=== PATIENT | male | born 1990 | race American Indian/Alaskan Native ===

== ENCOUNTER 2017-07-08 14:09 | Emergency (ER) | payer MEDICAID ==
[2017-07-08 14:31] VITALS: TEMP 98.5
[2017-07-08] MEDS ORDERED: DiphenhydrAMINE 50 mg/ml Inj IVP STA (14:59)
[2017-07-08] MEDS ORDERED: Sodium Chloride 0.9% 1,000 ML IV STA (15:00)
--- NOTE | 2017-07-08 15:03 | ED PDOC ---
Arrival/HPI - General Chief Complaint: Headache Time Seen by Provider: 07/08/17 14:34 Historian: Patient - History of Present Illness Narrative History of Present Illness (Text): 07/08/17 15:00 Patient w/ pmh of asthma, reports one week history of gradual onset of constant throbbing headache, which started in the occipital area scalp and is now mostly in the frontal scalp and forehead, worse when he bends his head down. Patient reports improvement of his headache when taking Advil or Aleve, however headache returns now or later. He further admits waking up this morning with double vision that lasted for a few seconds. Otherwise: (-) thunderclap headache, (-) worse headache of life, (-) similar symptoms prior, (-) nausea, (- ) vomiting, (-) photophobia, (-) phonophobia, (-) URI symptoms, (-) fever, (-) trauma, (-) subjective neurologic symptoms. Of note, patient states that he saw his pmd 3 months ago and had a normal bp. PMD Mahwiyuliya Past Medical History - Provider Review Nursing Documentation Reviewed: Yes - Cardiac Hx Cardiac Disorders: No - Pulmonary Hx Respiratory Disorders: No - Neurological Hx Neurological Disorder: No - HEENT Hx HEENT Disorder: No - Renal Hx Renal Disorder: No - Endocrine/Metabolic Hx Endocrine Disorders: No - Hematological/Oncological Hx Blood Disorders: No - Integumentary Hx Dermatological Disorder: No - Musculoskeletal/Rheumatological Hx Musculoskeletal Disorders: No - Gastrointestinal Hx Gastrointestinal Disorders: No - Genitourinary/Gynecological Hx Genitourinary Disorders: No - Psychiatric Hx Psychophysiologic Disorder: Yes (PTSD) Hx Substance Use: No - Surgical History Hx Orthopedic Surgery: Yes Family/Social History - Physician Review Nursing Documentation Reviewed: Yes Family/Social History: Diabetes, Hypertension, Other (lupus ) Smoking Status: Current Some Days Smoker Hx Alcohol Use: No Hx Substance Use: No Allergies/Home Meds Allergies/Adverse Reactions: Allergies shellfish derived Allergy (Verified 07/08/17 14:30) ANAPHYLAXIS Review of Systems - Review of Systems Constitutional: Normal. absent: Fatigue, Weight Change, Fevers ENT: Normal. absent: Hearing Changes, Sore Throat, Rhinorrhea, Sinus Congestion Respiratory: Normal, Cough. absent: SOB, Sputum Cardiovascular: Normal. absent: Chest Pain, Palpitations, Edema Musculoskeletal: Normal. absent: Arthralgias, Back Pain, Neck Pain Skin: Normal. absent: Rash, Pruritis, Skin Lesions Neurological: Normal, Headache. absent: Dizziness, Focal Weakness Physical Exam - Physical Exam Narrative Physical Exam (Text): 07/08/17 15:05 GENERAL APPEARANCE: Patient is awake, alert, oriented x 3, in mild painful distress. SKIN: Warm, dry; (-) cyanosis; (-) rash. HEAD: (-) scalp swelling or tenderness, (-) temporal artery tenderness. EYES: (-) conjunctival pallor, (-) scleral icterus. ENMT: (+) frontal sinus tenderness; mucous membranes moist. NECK: (-) tenderness, (-) stiffness, (-) meningismus, (-) lymphadenopathy. CHEST AND RESPIRATORY: (-) rales, (-) rhonchi, (-) wheezes; breath sounds equal bilaterally. HEART AND CARDIOVASCULAR: (-) irregularity; (-) murmur, (-) gallop. ABDOMEN AND GI: Soft; (-) tenderness. EXTREMITIES: (-) deformity. NEURO AND PSYCH: Mental status as above. coutierier: Pupils equal and reactive; EOMI ; (-) facial asymmetry; tongue and uvula midline. Strength and DTRs symmetric. Babinski normal bilaterally. Vital Signs Temp Pulse Resp BP Pulse Ox 07/08/17 16:54 78 17 122/61 100 07/08/17 14:30 98.5 F 90 16 161/96 H 99 Medical Decision Making ED Course and Treatment: 07/08/17 15:04 27 yo M c/o one week history of gradual onset of constant throbbing headache, is now mostly in the frontal scalp and forehead, worse when he bends his head down. Plan: - Labs - IVF - Reglan IV / Benadryl IV - CT head On first reevaluation, the patient is sleeping comfortably in bed in no acute distress. Labs reviewed and are within normal limits. CT head is pending at this time. VS : P 78 BP 122/61 R 17 O2sat 100%RA. On second reevaluation, patient, alert, oriented 3. Repeat neuro exam is within normal limits. Patient reports that he still has as a mild headache. CT head results reviewed and are within normal limits. Results d/w the patient in great detail. Patient given toradol 30 mg IV. Patient advised to follow up with primary care physician in 1-2 days without fail and to have bp repeated by pmd. Patient informed of likely diagnosis of sinus headache and sinusitis, and plan to treat as such. Advised to take medication as prescribed. Return to the emergency room at any time for any new or worsening symptoms. Patient states he fully agrees with and understands discharge instructions. States that he agrees with the plan and disposition. Verbalized and repeated discharge instructions and plan. I have given the patient opportunity to ask any additional questions. - Lab Interpretations Lab Results: 07/08/17 14:50 07/08/17 14:50 Lab Results 07/08/17 14:50: Sodium 140, Potassium 4.5, Chloride 104, Carbon Dioxide 28, Anion Gap 13, BUN 10, Creatinine 1.0, Est GFR ( Amer) > 60, Est GFR (Non- Af Amer) > 60, Random Glucose 116 H, Calcium 9.7, Total Bilirubin 0.6, AST 29, ALT 55, Alkaline Phosphatase 74, Total Protein 7.9, Albumin 4.4, Globulin 3.5, Albumin/Globulin Ratio 1.3 07/08/17 14:50: WBC 8.6, RBC 5.11, Hgb 12.2 L, Hct 37.3 L, MCV 73.0 L, MCH 23.9 L, MCHC 32.7, RDW 14.5, Plt Count 253, MPV 10.1, Gran % 59.8, Lymph % (Auto) 31.7, [place] % (Auto) 6.3 H, Eos % (Auto) 1.9, Baso % (Auto) 0.3, Gran # 5.16, Lymph # 2.7, [place] # 0.5, Eos # 0.2, Baso # 0.03 I have reviewed the lab results: Yes - RAD Interpretation Narrative RAD Interpretations (Text): 07/08/17 17:00 CT HEAD : FINDINGS: HEMORRHAGE: No intracranial hemorrhage. BRAIN: No mass effect or edema. No atrophy or chronic microvascular ischemic changes. VENTRICLES: Unremarkable. No hydrocephalus. CALVARIUM: Unremarkable. PARANASAL SINUSES: Negative study for acute paranasal sinusitis. Chronic disease involving the frontal and ethmoid air cells. MASTOID AIR CELLS: Unremarkable as visualized. No inflammatory changes. OTHER FINDINGS: None. IMPRESSION: No acute intracranial abnormalities. No significant findings to account for the clinical presentation. Radiology Orders: 07/08/17 16:01 HEAD W/O CONTRAST [CT] Stat - Medication Orders Current Medication Orders: Discontinued Medications Diphenhydramine HCl (Benadryl) 25 mg IVP STAT STA Stop: 07/08/17 15:00 Last Admin: 07/08/17 15:05 Dose: 25 mg Sodium Chloride (Sodium Chloride 0.9%) 1,000 mls @ 1,000 mls/hr IV .Q1H STA Stop: 07/08/17 15:59 Last Admin: 07/08/17 15:05 Dose: 1,000 mls/hr Ketorolac Tromethamine (Toradol) 30 mg IVP STAT STA Stop: 07/08/17 17:00 Last Admin: 07/08/17 17:03 Dose: 30 mg Metoclopramide HCl (Reglan) 10 mg IVP STAT STA Stop: 07/08/17 15:00 Last Admin: 07/08/17 15:05 Dose: 10 mg - 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 Disposition/Present on Arrival - Present on Arrival Any Indicators Present on Arrival: No History of DVT/PE: No History of Uncontrolled Diabetes: No Urinary Catheter: No History of Decub. Ulcer: No History Surgical Site Infection Following: None - Disposition Have Diagnosis and Disposition been Completed?: Yes Diagnosis: Sinus headache, Sinusitis Disposition: HOME/ ROUTINE Disposition Time: 17:00 Patient Plan: Discharge Condition: STABLE Discharge Instructions (ExitCare): Sinusitis (ED), Acute Headache (ED) Print Language: SINHAL[place] Additional Instructions: Thank you for letting us take care of you today. You were treated for sinus headache / sinusitis. The emergency medical care you received today was directed at your acute symptoms. If you were prescribed any medication, please fill it and take as directed. It may take several days for your symptoms to resolve. Return to the Emergency Department if your symptoms worsen, do not improve, or if you have any other problems. Please contact your doctor in 2 days for re-evaluation and follow up. Bring any paperwork you were given at discharge with you along with any medications you are taking to your follow up visit. Our treatment cannot replace ongoing medical care by a primary care provider (PCP) outside of the emergency department. Thank you for allowing the [facility] team to be part of your care today. If you had a CT scan: A Radiologist will review the ED reading if any change in treatment is needed we will contact you. Prescriptions: Amoxicillin 500 mg PO TID #30 tablet Fluticasone Nasal [Flonase] 1 spr NS DAILY #1 spr Naproxen 500 mg PO BID #30 tab Referrals: Cory Naqvi MD [Primary Care Provider] - Follow up with primary Forms: [employer] (Dive[place]), WORK NOTE
[2017-07-08 15:25] LABS: ALB/GLOB RATIO 1.3 (1.1-1.8); ALKALINE PHOSPHATASE 74 U/L (38-126); ALT/SGPT 55 U/L (7-56); AST/SGOT 29 U/L (17-59); BILIRUBIN,TOTAL 0.6 mg/dL (0.2-1.3); BLOOD UREA NITROGEN 10 mg/dL (7-21); CALCIUM 9.7 mg/dL (8.4-10.5); CARBON DIOXIDE 28 mmol/L (21-33); CHLORIDE 104 mmol/L (98-107); GFR AFRICAN-AMERICAN > 60; GLUCOSE,RANDOM 116 mg/dL (70-110); POTASSIUM 4.5 mmol/L (3.6-5.0); SODIUM 140 mmol/L (132-148); TOTAL PROTEIN 7.9 g/dL (5.8-8.3)
[2017-07-08 15:43] LABS: BASO # 0.03 K/mm3 (0.0-2.0); BASO % 0.3 % (0.0-3.0); EOS # 0.2 (0.0-0.7); EOS % 1.9 % (1.5-5.0); GRAN # 5.16 (1.4-6.5); GRAN % 59.8 % (50.0-68.0); HEMATOCRIT 37.3 % (42.0-52.0); LYMPH # 2.7 (1.2-3.4); LYMPH % 31.7 % (22.0-35.0); MEAN CORPUSCULAR HEMOGLOBIN 23.9 pg (25.0-35.0); MEAN CORPUSCULAR HGB CONC 32.7 g/dl (31.0-37.0); MEAN PLATELET VOLUME 10.1 fl (7.0-11.0); MONO # 0.5 (0.1-0.6); MONO % 6.3 % (1.0-6.0); RED CELL DISTRIBUTION WIDTH 14.5 % (11.5-14.5); WHITE BLOOD COUNT 8.6 10^3/ul (4.5-11.0)
--- NOTE | 2017-07-08 16:44 | CT ---
PROCEDURE: CT HEAD WITHOUT CONTRAST. HISTORY: HEADACHE COMPARISON: None available. TECHNIQUE: Axial computed tomography images were obtained through the head/brain without intravenous contrast. Radiation dose: Total exam DLP = mGy-cm. This CT exam was performed using one or more of the following dose reduction techniques: Automated exposure control, adjustment of the mA and/or kV according to patient size, and/or use of iterative reconstruction technique. FINDINGS: HEMORRHAGE: No intracranial hemorrhage. BRAIN: No mass effect or edema. No atrophy or chronic microvascular ischemic changes. VENTRICLES: Unremarkable. No hydrocephalus. CALVARIUM: Unremarkable. PARANASAL SINUSES: Negative study for acute paranasal sinusitis. Chronic disease involving the frontal and ethmoid air cells. MASTOID AIR CELLS: Unremarkable as visualized. No inflammatory changes. OTHER FINDINGS: None. IMPRESSION: No acute intracranial abnormalities. No significant findings to account for the clinical presentation.
[2017-07-08 16:55] VITALS: BP 122/61; PULSE 78; RESP 17; O2SAT 100
== END 2017-07-08 17:22 | disposition home or self-care (01) ==
LOC: ED 14:09 → MERGE 14:09 → ED 17:22
DX: R51 Headache (principal); J32.9 Chronic sinusitis, unspecified; F17.210 Nicotine dependence, cigarettes, uncomplicated
CPT/HCPCS: 70450; 80053; 85025; 96374; 96375; 99285; J1200; J1885; J2765; J7040